=== PATIENT | female | born 1945 | race Caucasian/White ===

== ENCOUNTER → 2016-06-13 | Outpatient (REF) | payer MEDICARE, OTHER ==
[2016-06-13 12:27] LABS: ALBUMIN 4.6 g/dL (3.4-5.0)
== END ==
LOC: LAB 11:14
PROVIDERS: ATTEND Family Medicine
DX: Z51.81 Encounter for therapeutic drug level monitoring (principal); Z79.01 Long term (current) use of anticoagulants; N18.2 Chronic kidney disease, stage 2 (mild); I10 Essential (primary) hypertension; I87.2 Venous insufficiency (chronic) (peripheral); D64.89 Other specified anemias; R73.09 Other abnormal glucose
CPT/HCPCS: 80061; 80076; 83036; 85610

== ENCOUNTER → 2016-09-13 | Outpatient (REF) | payer MEDICARE, OTHER ==
[2016-09-13 11:47] LABS: ANION GAP 19.3 MEQ/L (3-15)
== END ==
LOC: LAB 11:26
PROVIDERS: ATTEND Family Medicine
DX: E11.42 Type 2 diabetes mellitus with diabetic polyneuropathy (principal); I10 Essential (primary) hypertension; E78.4 Other hyperlipidemia; Z79.01 Long term (current) use of anticoagulants; N18.2 Chronic kidney disease, stage 2 (mild); G25.81 Restless legs syndrome
CPT/HCPCS: 80048; 83036; 83735; 85610